=== PATIENT | male | born 1980 | race Caucasian/White ===

== ENCOUNTER 2019-07-22 08:02 | Day surgery (SDC) | payer SELFPAY ==
[2019-07-19 18:16] VITALS: BMI 28.3
[2019-07-22] VITALS (9 sets, daily range): BP systolic 112–147; BP diastolic 72–97; PULSE 64–82; RESP 14–20; TEMP 36.2–37; O2SAT 97–99
--- NOTE | 2019-07-22 | SCC_ITS ---
Procedure Done: Exploration wound right hand with removal foreign body, deep, thumb flexor tendon sheath 6 seconds of fluoroscopic guidance, for a cumulative dose of 0.064 mGy, was provided to Dr. Charlton by the radiology department. C-arm images of the RIGHT finger were saved for the patient's permanent record. ARIANNA
--- NOTE | 2019-07-22 | XR_ITS ---
WS: [id number] 3 views of the right second finger, C-arm fluoroscopy,07/22/2019 Clinical Data: FOREIGN BODY REMOVAL 2ND DIGIT Comparison: Right hand x-ray, 07/04/2019 Findings: A radiopaque needle or wire has been removed from the base of the right second proximal phalanx.. No residual is seen. XR/XR finger RT min 2V 35022 Impression: Satisfactory removal of radiopaque foreign body.
[2019-07-22] MEDS: sodium chloride 0.9% 1,000 ML 30 ML IV (08:34)
--- NOTE | 2019-07-22 08:45 | ANES.PREANES ---
Pre-Anesthetic Assessment Pre-Anesthetic Assessment: Height/Weight: Height 1.85 m Weight 97.522 kg Temp Pulse Resp BP Pulse Ox 97.5 F L 70 18 147/84 99 07/22/19 08:14 07/22/19 08:14 07/22/19 08:14 07/22/19 08:14 07/22/19 08:14 Proposed Procedure: Operation Date: 07/22/19 09:30 Proposed Procedures p Foreign Body removal or right index finger 88144, S60.459A(Right) - En Charlton MD Last intake: Intake Last Liquid Date 07/21/19 Last Liquid Time 23:00 Last Solid Date 07/21/19 Last Solid Time 21:00 Social: Social History: No alcohol and No tobacco Exam: Pre-Anes Outpt Exam: alert, oriented x 3, clear to auscultation bilaterally and regular rate & rhythm Airway: Submandibular: WNL Cervical ROM: WNL MP: 3 Dentition: Other (missing) Pulmonary: Pulmonary: None reported CV/HEM: CV/HEM: None reported : : None reported Hepatic: Hepatic: None reported GI: GI: None reported Metabolic: Metabolic: None reported Musc/skel: Comments: R index finger foreign body Neuropsych: Neuropsych: None reported Anesthetic Plan: ASA status: I Anesthesia: General Risk of > 500 ml blood loss (7ml/kg in children): No Meds/Allergies Current Medications: Current Medications Generic Name Dose Route Start Last Admin Trade Name Freq PRN Reason Stop Dose Admin Sodium Chloride 1,000 mls @ 30 ml s/hr 07/22/19 07:30 07/22/19 08:34 Sodium Chloride 0.9% IV 07/23/19 07:29 30 mls/hr .Q24H SAMRA Administration PFSH Anesthesia PFSH: Social History (Updated 07/19/19 @ 18:06 by [employer]) Smoking and tobacco status: unknown if ever smoked Alcohol intake: never Data Anesthesia Cardiac Studies: No Data to Display
[2019-07-22] MEDS: midazolam 1 mg/mL INJ 2 mL 2 MG IVP (09:11)
--- NOTE | 2019-07-22 10:28 | PM.HPUD ---
H&P update H&P Update: DATE OF SURGERY/PROCEDURE: 07/22/19 DATE H&P PERFORMED: 07/08/19 H&P UPDATE INFORMATION: H&P completed within last 30 days and Changes to prior documentation as noted here CHANGES TO PREVIOUS DOCUMENTATION: The patient described recurrent swelling and pain in his right index finger after his 07/08/2019 visit here in the OR. He was treated with cephalexin with improvement. He describes persistent discomfort and again wishes to consider foreign body removal. PREOP DIAGNOSIS: Foreign body right hand PRIMARY INDICATION FOR PROCEDURE: The patient has recurrent infections in his right index finger after a penetrating foreign body on 07/03/2019. Irrigation and debridement with removal of the foreign body is planned to eliminate sources of infection. PLANNED PROCEDURE: Operation Date: 07/22/19 09:30 Proposed Procedures p Foreign Body removal or right index finger [id number], S60.459A(Right) - En Charlton MD Conscious Sedation: OTHER PERTINENT EXAM FINDINGS: HEAD: Normocephalic/atraumatic. NECK: Soft supple nontender. HEART: Normal heart sounds, regular rhythm. CHEST: Clear to auscultation. ABDOMEN: Soft nontender nondistended. The patient has tenderness over his palmar right index finger over the metacarpophalangeal joint. There is no erythema, fluctuance, or open wounds. Full H&P Medications/Allergies: Current Medications: Current Medications Generic Name Dose Route Start Last Admin Trade Name Freq PRN Reason Stop Dose Admin Sodium Chloride 1,000 mls @ 30 ml s/hr 07/22/19 07:30 07/22/19 08:34 Sodium Chloride 0.9% IV 07/23/19 07:29 30 mls/hr .Q24H SAMRA Administration Perinent History: Social History: Social History Smoking and tobacco status: unknown if ever smoked Alcohol intake: never
[2019-07-22] MEDS: clindamycin 600 MG/50 ML PREMIX 100 MG IV (10:50)
--- NOTE | 2019-07-22 11:33 | SUR.OPER ---
Foreign body removed intact and sent with patient.
--- NOTE | 2019-07-22 11:52 | P.OP_ITS ---
Operative Report Post-Operative Note: Date of procedure: 07/22/19 Preop Diagnosis: Wound right hand with foreign body Post-op diagnosis: same Post-op Findings: Patient had a metallic wire approximately 1 cm in length embedded in the flexor tendon sheath of his index finger at the level of the proximal phalanx Procedure Done: Exploration wound right hand with removal foreign body, deep, thumb flexor tendon sheath Implants: None Pathology: none sent Surgeon: En Charlton Anesthesia: general Estimated blood loss (mL): 0 Tourniquet time (min): 21 Findings: The patient had a metallic foreign body on the ulnar flexor tendon sheath of the index finger overlying the proximal phalanx Condition: stable Disposition: PACU Operative Report: Brief History: The patient had a penetrating foreign body into his right hand. He was treated initially with Bactrim and later cephalexin with persistent pain and the swelling. Surgical excision was chosen to remove the foreign body and eliminate sources of infection Procedure: Patient was taken to the operating room and given a general anesthesia. He was prepped and draped in the supine position with his right hand exposed. Initially a V-shaped incision was made over the proximal flexion crease of the right index finger with the apex ulnar. Dissection was carried down with loupe magnification identifying the ulnar neurovascular bundles and retracted them ulnarly. Intraoperative fluoroscopy was used to identify the foreign body which appeared to be in the ulnar aspect of the common flexor tendon sheath. A 5 mm section of tendon sheath was divided. The metallic foreign body was identified and removed. Intraoperative images showed the foreign body removed. There is no necrosis or purulence. The wound was irrigated with saline. Skin edges were closed with 3-0 Prolene. Sterile dressings were applied. The patient was extubated and taken to recovery room in stable condition. Coding Level of Care Code Acute Terminal Manager for Wilver Camacho
--- NOTE | 2019-07-22 11:55 | SUR.PHASEI ---
1147 PATIENT TO PACU VIA GURNEY FROM OR AT THIS TIME. ORAL AIRWAY IN PLACE. RR EVEN AND UNLABORED. PLACED ON SIMPLE MASK AT 8L. DRESSING TO RIGHT HAND, CLEAN, DRY AND INTACT.
--- NOTE | 2019-07-22 12:15 | SUR.PHASEI ---
1211 PATIENT TO OPS VIA [facility] AT THIS TIME. A/OX3. RR EVEN AND UNLABORED. DRESSING TO RIGHT HAND, CDI.
[2019-07-22] MEDS: HYDROcodone-acetaminophen 5-325 mg Tablet 1 TAB PO (12:28)
--- NOTE | 2019-08-10 07:37 | PM.HPUD ---
H&P update H&P Update: DATE OF SURGERY/PROCEDURE: 08/10/19 DATE H&P PERFORMED: 07/08/19 H&P UPDATE INFORMATION: H&P completed within last 30 days CHANGES TO PREVIOUS DOCUMENTATION: Patient has had contdinued pain and chooses removal loose body PREOP DIAGNOSIS: Same, painful foreign body right index finger PRIMARY INDICATION FOR PROCEDURE: Painful foreign body right index finger PLANNED PROCEDURE: Operation Date: 07/22/19 09:30 Proposed Procedures p Foreign Body removal or right index finger [id number], S60.459A(Right) - En Charlton MD Full H&P Perinent History: Social History: Social History Smoking and tobacco status: unknown if ever smoked Alcohol intake: never
== END 2019-07-22 13:30 | disposition home or self-care (01) ==
PROVIDERS: Family Provider Family Medicine; Visit Provider Orthopaedic Surgery
PROC: (CPT 20520; principal; 2019-07-22 09:30)
DX: S61.220A Laceration with foreign body of right index finger without damage to nail, initial encounter (principal); X58.XXXA Exposure to other specified factors, initial encounter
CPT/HCPCS: 20520; 12345; 73140; 76000; J1100; J2250; J2405; J2704; J3010; J3490; J7030

== ENCOUNTER → 2023-06-30 10:23 | Outpatient (BNVA) | payer SELFPAY | PROVIDERS: Family Provider Family Medicine; PCP Family Medicine Adult Medicine; Visit Provider Family Medicine Adult Medicine | DX: I25.10 Atherosclerotic heart disease of native coronary artery without angina pectoris (principal); F98.8 Other specified behavioral and emotional disorders with onset usually occurring in childhood and adolescence | CPT/HCPCS: 80053; 80061; 84443; 85025 ==

== ENCOUNTER → 2024-10-25 10:29 | Outpatient (BNVA) | payer SELFPAY | PROVIDERS: Family Provider Family Medicine; PCP Family Medicine; Visit Provider Family Medicine | DX: Z13.6 Encounter for screening for cardiovascular disorders (principal) | CPT/HCPCS: 80053; 80061; 84439; 84443; 85025 ==